=== PATIENT | female | born 1995 | race Caucasian/White ===

== ENCOUNTER → 2018-08-18 10:23 | Outpatient (CLI) | payer OTHER ==
[2018-08-18 11:22] LABS: UDS - AMPHET NEGATIVE QUAL (NEGATIVE); UDS - BARB NEGATIVE QUAL (NEGATIVE); UDS - BENZO NEGATIVE QUAL (NEGATIVE); UDS - COCAINE NEGATIVE QUAL (NEGATIVE); UDS - OPIATE NEGATIVE QUAL (NEGATIVE); UDS - PCP NEGATIVE QUAL (NEGATIVE); UDS - THC POSITIVE QUAL (NEGATIVE)
[2018-08-18 11:39] LABS: APPEARANCE HAZY (CLEAR); BACTERIA MODERATE /hpf (NONE SEEN); BILIRUBIN NEGATIVE (NEGATIVE); COLOR YELLOW (YELLOW); EPITHELIAL CELLS 0-5 /hpf (0-5); GLUCOSE NEGATIVE (NEGATIVE); KETONE NEGATIVE (NEGATIVE); MUCUS <1+ /lpf (NONE SEEN); NITRITE NEGATIVE (NEGATIVE); PROTEIN NEGATIVE (NEGATIVE); RED CELLS - URINE 0-5 /hpf (0-5); SPECIFIC GRAVITY 1.005 (1.005-1.020); UROBILINOGEN NORMAL (NORMAL); WHITE CELLS - URINE 0-5 /hpf (0-5)
[2018-08-18 12:57] LABS: BASOPHILS 0 % (0-2); EOSINOPHILS 2.6 % (0-7); HEMATOCRIT 30.5 % (36.0-48.0); HEMOGLOBIN 10.5 g/dL (12-16); IMMATURE GRANULOCYTES 1.3 % (0-5); LYMPHOCYTES 20.3 % (15-50); MCH 32.7 pg (26.0-34.0); MCHC 34.4 g/dL (31.0-37.0); MEAN PLATELET VOLUME 9.3 fL (7.4-10.4); NEUTROPHILS 68.8 % (40-80); RBC 3.21 10x6/uL (4.00-5.40); RDW 12.1 % (11.5-14.5); WBC 7.7 10x3/uL (4.8-10.8)
[2018-08-18 13:05] LABS: PLATELET COUNT 162 10x3/uL (130-400)
--- NOTE | 2018-08-18 19:30 | NUR ---
MACROBID 100 MG ONE PO BID X 7 DAYS CALLED TO [facility] [address].
== END | disposition home or self-care (01) ==
LOC: D.LDO 10:23
PROVIDERS: ATTEND Obstetrics & Gynecology
DX: O26.859 Spotting complicating pregnancy, unspecified trimester (principal); Z3A.00 Weeks of gestation of pregnancy not specified

== ENCOUNTER → 2018-10-11 13:42 | Outpatient (CLI) | payer MEDICAID | END | disposition left against medical advice (07) | LOC: D.LDO 13:42 | PROVIDERS: ATTEND Obstetrics & Gynecology | DX: Z34.90 Encounter for supervision of normal pregnancy, unspecified, unspecified trimester (principal) ==

== ENCOUNTER → 2018-10-20 12:33 | Outpatient (CLI) | payer MEDICAID | END | disposition home or self-care (01) | LOC: D.LDO 12:33 | PROVIDERS: ATTEND Student in an Organized Health Care Education/Training Program | DX: O36.5990 Maternal care for other known or suspected poor fetal growth, unspecified trimester, not applicable or unspecified (principal) ==

== ENCOUNTER 2018-10-25 20:01 | Outpatient (CLI) | payer MEDICAID ==
[2018-10-25 20:59] LABS: APPEARANCE CLEAR (CLEAR); BILIRUBIN NEGATIVE (NEGATIVE); COLOR YELLOW (YELLOW); GLUCOSE NEGATIVE (NEGATIVE); KETONE NEGATIVE (NEGATIVE); NITRITE NEGATIVE (NEGATIVE); PROTEIN NEGATIVE (NEGATIVE); UROBILINOGEN NORMAL (NORMAL)
[2018-11-15 05:10] VITALS: BMI 26.3
== END 2018-10-26 01:00 | disposition home or self-care (01) ==
LOC: D.LDO 20:01 → D.LD 23:08 → D.LDO 10-26 01:00
PROVIDERS: Obstetrics & Gynecology; ATTEND Obstetrics & Gynecology
DX: O26.899 Other specified pregnancy related conditions, unspecified trimester (principal); Z3A.00 Weeks of gestation of pregnancy not specified

== ENCOUNTER → 2018-10-28 10:32 | Outpatient (CLI) | payer MEDICAID ==
[~2018-10-28 10:32] MED LIST: CELEXA20 MG PO
[2018-10-28 11:10] LABS: APPEARANCE CLEAR (CLEAR); BACTERIA FEW /hpf (NONE SEEN); BILIRUBIN NEGATIVE (NEGATIVE); COLOR YELLOW (YELLOW); EPITHELIAL CELLS OCC /hpf (0-5); GLUCOSE NEGATIVE (NEGATIVE); KETONE NEGATIVE (NEGATIVE); MUCUS <1+ /lpf (NONE SEEN); NITRITE NEGATIVE (NEGATIVE); PROTEIN NEGATIVE (NEGATIVE); UROBILINOGEN NORMAL (NORMAL); WHITE CELLS - URINE RARE /hpf (0-5)
[2018-11-15 05:10] VITALS: BMI 26.3
== END | disposition home or self-care (01) ==
LOC: D.LDO 10:32
PROVIDERS: Obstetrics & Gynecology; ATTEND Student in an Organized Health Care Education/Training Program
DX: O26.899 Other specified pregnancy related conditions, unspecified trimester (principal); Z3A.00 Weeks of gestation of pregnancy not specified

== ENCOUNTER 2018-11-15 03:58 | Inpatient (IN) | payer MEDICAID ==
[~2018-11-15] VITALS: Ht 165.1 cm; Wt 71.8 kg
[2018-11-15 04:35] LABS: HEMATOCRIT 32.1 % (36.0-48.0); MCH 32.6 pg (26.0-34.0); MCHC 34.3 g/dL (31.0-37.0); MCV 95.3 fL (80.0-100.0); MEAN PLATELET VOLUME 9.9 fL (7.4-10.4); RBC 3.37 10x6/uL (4.00-5.40); RDW 12.7 % (11.5-14.5); WBC 8.8 10x3/uL (4.8-10.8)
[2018-11-15 04:43] LABS: UDS - AMPHET NEGATIVE QUAL (NEGATIVE); UDS - BARB NEGATIVE QUAL (NEGATIVE); UDS - BENZO NEGATIVE QUAL (NEGATIVE); UDS - COCAINE NEGATIVE QUAL (NEGATIVE); UDS - OPIATE NEGATIVE QUAL (NEGATIVE); UDS - PCP NEGATIVE QUAL (NEGATIVE); UDS - THC NEGATIVE QUAL (NEGATIVE)
[2018-11-15 05:10] VITALS: BP 129/75; Ht 165.1 cm; Wt 71.8 kg
[2018-11-15 07:35] VITALS: BP 112/72
[2018-11-15 19:10] VITALS: BP 121/81
[2018-11-16 07:48] LABS: BASOPHILS 0.2 % (0-2); HEMATOCRIT 30.9 % (36.0-48.0); HEMOGLOBIN 10.2 g/dL (12-16); IMMATURE GRANULOCYTES 0.7 % (0-5); LYMPHOCYTES 15.2 % (15-50); MCH 31.7 pg (26.0-34.0); MEAN PLATELET VOLUME 10.1 fL (7.4-10.4); MONOCYTES 7.9 % (2-11); PLATELET COUNT 148 10x3/uL (130-400); RBC 3.22 10x6/uL (4.00-5.40); RDW 12.5 % (11.5-14.5); WBC 10.4 10x3/uL (4.8-10.8)
[2018-11-16] MEDS ORDERED: CELEXA20 MG PO (13:09)
[2018-11-17 07:13] LABS: RAPID PLASMA REAGIN Non Reactive (Non Reactive)
== END 2018-11-16 14:30 | disposition home or self-care (01) | DRG 807 ==
LOC: D.LD 03:58
PROVIDERS: ADMIT Obstetrics & Gynecology; ATTEND Obstetrics & Gynecology
PROC: 10E0XZZ Delivery of Products of Conception, External Approach (ICD-10-PCS; principal; 2018-11-15)
DX: O99.344 Other mental disorders complicating childbirth (principal); Z37.0 Single live birth; Z3A.39 39 weeks gestation of pregnancy

== ENCOUNTER 2019-01-09 06:05 | Emergency (ER) | payer MEDICAID ==
[~2019-01-09] VITALS: Ht 165.1 cm; Wt 68.2 kg
[2019-01-09 06:10] VITALS: Ht 165.1 cm; Wt 68.2 kg
[2019-01-09 06:22] LABS: BASOPHILS 0.2 % (0-2); EOSINOPHILS 3.2 % (0-7); HEMATOCRIT 40.2 % (36.0-48.0); HEMOGLOBIN 13.2 g/dL (12-16); IMMATURE GRANULOCYTES 0.1 % (0-5); MCH 31.2 pg (26.0-34.0); MCHC 32.8 g/dL (31.0-37.0); MEAN PLATELET VOLUME 9.5 fL (7.4-10.4); MONOCYTES 5.4 % (2-11); NEUTROPHILS 61.1 % (40-80); RBC 4.23 10x6/uL (4.00-5.40); RDW 12.1 % (11.5-14.5); WBC 11.5 10x3/uL (4.8-10.8)
[2019-01-09 06:30] LABS: PLATELET COUNT 246 10x3/uL (130-400)
[2019-01-09 06:32] LABS: HCG SERUM NEGATIVE (NEGATIVE)
[2019-01-09 06:34] LABS: COLOR YELLOW (YELLOW)
[2019-01-09 06:34] LABS: CALCIUM 9.3 mg/dL (8.5-10.1); CARBON DIOXIDE 24.4 mmol/L (21.0-32.0); CREATININE - SERUM 1.1 mg/dL (0.6-1.3); POTASSIUM - SERUM 3.4 mmol/L (3.5-5.1)
[2019-01-09 06:35] LABS: APPEARANCE HAZY (CLEAR); BILIRUBIN NEGATIVE (NEGATIVE); GLUCOSE NEGATIVE (NEGATIVE); KETONE NEGATIVE (NEGATIVE); NITRITE NEGATIVE (NEGATIVE); PROTEIN NEGATIVE (NEGATIVE); UROBILINOGEN NORMAL (NORMAL)
[2019-01-09 06:36] LABS: EPITHELIAL CELLS 0-5 /hpf (0-5); MUCUS <1+ /lpf (NONE SEEN); WHITE CELLS - URINE 0-5 /hpf (NEGATIVE)
[2019-01-09 06:40] LABS: BILIRUBIN - TOTAL 0.42 mg/dL (0.2-1.3); PROTEIN - SERUM 8.1 g/dL (6.4-8.2)
[2019-01-09] MEDS ORDERED: ZOFRAN ODT4 MG/UDTAB PO (09:44)
[2019-01-09 10:23] VITALS: BP 119/88
== END 2019-01-09 10:25 | disposition home or self-care (01) ==
LOC: D.ER 06:05
PROVIDERS: Emergency Medicine
DX: R10.2 Pelvic and perineal pain (principal); K21.9 Gastro-esophageal reflux disease without esophagitis

== ENCOUNTER 2019-02-13 00:23 | Emergency (ER) | payer MEDICAID ==
[~2019-02-13] VITALS: Ht 165.1 cm; Wt 56.7 kg
[~2019-02-13 00:23] MED LIST changes: +ZOFRAN ODT4 MG/UDTAB PO
[2019-02-13 00:27] VITALS: Ht 165.1 cm; Wt 56.7 kg
[2019-02-13] MEDS ORDERED: CYCLOBENZAPRINE10 MG PO (01:01)
[2019-02-13] MEDS ORDERED: NAPROSYN500 MG PO (01:01)
[2019-02-13 01:22] VITALS: BP 108/78
== END 2019-02-13 01:22 | disposition home or self-care (01) ==
LOC: D.ER 00:23
DX: S46.911A Strain of unspecified muscle, fascia and tendon at shoulder and upper arm level, right arm, initial encounter (principal); S40.011A Contusion of right shoulder, initial encounter; Y04.8XXA Assault by other bodily force, initial encounter; Y93.9 Activity, unspecified; Y92.9 Unspecified place or not applicable; J45.909 Unspecified asthma, uncomplicated